=== PATIENT | male | born 1945 | race Caucasian/White ===

== ENCOUNTER → 2016-08-15 | Outpatient (CLI) | payer MEDICARE, OTHER ==
[~2016-08-15] MED LIST: COREG 25MG TAB25 MG PO; DIGOX250 MCG PO; METFORMIN HCL1000 M1 PO; NORVASC 5 MG TAB5 MG PO; SIMVASTATIN20 MG PO; SYNTHROID200 MCG PO; XARELTO20 MG PO; ZANTAC150 MG PO
== END ==
LOC: LAB 09:04 → US 09:04
DX: R94.5 Abnormal results of liver function studies (principal)
CPT/HCPCS: 36415; 82103; 83540; 83550; 86039; 86255

== ENCOUNTER → 2016-08-18 | Day surgery (SDC) | payer MEDICARE, OTHER | END | disposition home or self-care (01) | LOC: OR 06:33 | PROVIDERS: Internal Medicine Gastroenterology | PROC: 0DJD8ZZ Inspection of Lower Intestinal Tract, Via Natural or Artificial Opening Endoscopic (ICD-10-PCS; 2016-08-18) | PROC: 0DB48ZX Excision of Esophagogastric Junction, Via Natural or Artificial Opening Endoscopic, Diagnostic (ICD-10-PCS; principal; 2016-08-18 10:30) | PROC: 0DB68ZX Excision of Stomach, Via Natural or Artificial Opening Endoscopic, Diagnostic (ICD-10-PCS; 2016-08-18 10:30) | DX: K29.30 Chronic superficial gastritis without bleeding (principal); K21.0 Gastro-esophageal reflux disease with esophagitis; K64.0 First degree hemorrhoids; I11.0 Hypertensive heart disease with heart failure; I50.9 Heart failure, unspecified; K21.9 Gastro-esophageal reflux disease without esophagitis; M19.90 Unspecified osteoarthritis, unspecified site; Z82.49 Family history of ischemic heart disease and other diseases of the circulatory system; Z83.3 Family history of diabetes mellitus; Z79.899 Other long term (current) drug therapy; Z95.810 Presence of automatic (implantable) cardiac defibrillator; Z98.49 Cataract extraction status, unspecified eye | CPT/HCPCS: 82962; J7030 ==

== ENCOUNTER → 2016-08-22 | Outpatient (CLI) | payer MEDICARE, OTHER | LOC: US 09:19 | DX: R94.5 Abnormal results of liver function studies (principal); K80.20 Calculus of gallbladder without cholecystitis without obstruction; N28.1 Cyst of kidney, acquired | CPT/HCPCS: 76705 ==

== ENCOUNTER → 2020-07-15 | Outpatient (CLI) | payer MEDICARE, OTHER ==
[~2020-07-15] MED LIST changes: +DIGOXIN125 MCG PO; +ENTRESTO 24 MG1 EACH PO; +FAMOTIDINE20 MG PO; +FINASTERIDE5 MG PO; +HYDRALAZINE HC100 MG PO; +IRON325 M1 PO; +LANTUS100 UNIT/1 SC; +LEVAQUIN500 MG PO; +LEVOTHYROXINE125 MCG PO; +NOVOLOG100 UNIT/1 SC; +TAMSULOSIN HCL0.4 MG PO; +TYLENOL WITH C1 EACH PO
== END ==
LOC: US 10:12
DX: N28.1 Cyst of kidney, acquired (principal)

== ENCOUNTER 2020-11-12 07:41 | Emergency (ER) | payer MEDICARE, OTHER | END 2020-11-12 08:33 | disposition home or self-care (01) | LOC: ER1 07:41 | DX: S70.262A Insect bite (nonvenomous), left hip, initial encounter (principal); E11.9 Type 2 diabetes mellitus without complications; I10 Essential (primary) hypertension; W22.8XXA Striking against or struck by other objects, initial encounter | CPT/HCPCS: 99281 ==

== ENCOUNTER 2021-02-25 14:44 | Emergency (ER) | payer MEDICARE, OTHER ==
[2021-02-25 16:36] LABS: HEMOGLOBIN 10.4 gm/dl (14.0-17.5); RED BLOOD COUNT 3.45 M/UL (4.20-5.50); WHITE BLOOD COUNT 7.4 K/UL (4.5-11.0)
[2021-02-25] MEDS ORDERED: LASIX20 MG PO (18:14)
== END 2021-02-25 19:08 | disposition home or self-care (01) ==
LOC: ER1 14:44
PROVIDERS: Preventive Medicine Occupational Medicine
DX: I11.0 Hypertensive heart disease with heart failure (principal); I50.9 Heart failure, unspecified; E11.9 Type 2 diabetes mellitus without complications
CPT/HCPCS: 71045; 80053; 81001; 82550; 82553; 83690; 83874; 83880; 84484; 85025; 85652; 86140; 87086; 93970; 96374; 99284

== ENCOUNTER → 2021-03-12 | Outpatient (CLI) | payer MEDICARE, OTHER ==
[~2021-03-12] MED LIST changes: +LASIX20 MG PO
== END ==
LOC: US 10:08
DX: R74.8 Abnormal levels of other serum enzymes (principal); N28.1 Cyst of kidney, acquired
CPT/HCPCS: 76700

== ENCOUNTER → 2021-03-29 | Outpatient (CLI) | payer MEDICARE, OTHER | LOC: HEART 5 09:27 | DX: I50.22 Chronic systolic (congestive) heart failure (principal) | CPT/HCPCS: 93306 ==

== ENCOUNTER → 2021-04-15 | Day surgery (SDC) | payer MEDICARE, OTHER ==
[~2021-04-15] MED LIST changes: +CEPHALEXIN500 M1 PO; +HUMALOG100 UNIT/1 SQ; +LANTUS SOL100 UNIT/1 SQ; +NORVASC5 MG PO; +VITAMIN D350 MCG PO
== END | disposition home or self-care (01) ==
LOC: OR 06:26
DX: K31.9 Disease of stomach and duodenum, unspecified (principal); K29.50 Unspecified chronic gastritis without bleeding; D12.2 Benign neoplasm of ascending colon; D12.0 Benign neoplasm of cecum; D12.3 Benign neoplasm of transverse colon; D50.0 Iron deficiency anemia secondary to blood loss (chronic); K64.1 Second degree hemorrhoids; R79.89 Other specified abnormal findings of blood chemistry; E66.3 Overweight; I10 Essential (primary) hypertension; E11.9 Type 2 diabetes mellitus without complications; E07.9 Disorder of thyroid, unspecified; Z68.26 Body mass index [BMI] 26.0-26.9, adult; Z87.891 Personal history of nicotine dependence; Z79.899 Other long term (current) drug therapy; Z20.822 Contact with and (suspected) exposure to COVID-19; Z95.0 Presence of cardiac pacemaker
CPT/HCPCS: 82962; J2001; J2704; J7040

== ENCOUNTER → 2021-09-10 | Outpatient (CLI) | payer MEDICARE, OTHER | LOC: WCC 07:33 | DX: S81.801A Unspecified open wound, right lower leg, initial encounter (principal); S81.802A Unspecified open wound, left lower leg, initial encounter; I11.0 Hypertensive heart disease with heart failure; I50.9 Heart failure, unspecified; R60.0 Localized edema; Z87.891 Personal history of nicotine dependence | CPT/HCPCS: 97597 ==

== ENCOUNTER → 2021-09-17 | Outpatient (CLI) | payer MEDICARE, OTHER | LOC: WCC 07:01 | DX: I87.2 Venous insufficiency (chronic) (peripheral) (principal); L97.229 Non-pressure chronic ulcer of left calf with unspecified severity; I11.0 Hypertensive heart disease with heart failure; I50.9 Heart failure, unspecified; E11.9 Type 2 diabetes mellitus without complications; S81.801A Unspecified open wound, right lower leg, initial encounter; S81.802A Unspecified open wound, left lower leg, initial encounter; Z79.4 Long term (current) use of insulin; Z79.899 Other long term (current) drug therapy; X58.XXXA Exposure to other specified factors, initial encounter | CPT/HCPCS: G0463 ==

== ENCOUNTER → 2021-09-17 | Outpatient (CLI) | payer MEDICARE, OTHER | LOC: US 11:55 | DX: R60.0 Localized edema (principal); S81.801A Unspecified open wound, right lower leg, initial encounter; S81.802A Unspecified open wound, left lower leg, initial encounter; I11.0 Hypertensive heart disease with heart failure; I50.9 Heart failure, unspecified | CPT/HCPCS: 93922; 93925 ==

== ENCOUNTER 2021-09-27 11:04 | Emergency (ER) | payer MEDICARE, OTHER ==
[2021-09-27 11:55] LABS: HEMOGLOBIN 11.6 gm/dl (14.0-17.5); RED BLOOD COUNT 3.75 M/UL (4.20-5.50); WHITE BLOOD COUNT 7.7 K/UL (4.5-11.0)
== END 2021-09-27 13:25 | disposition home or self-care (01) ==
LOC: ER1 11:04
PROVIDERS: Nurse Practitioner
DX: S01.01XA Laceration without foreign body of scalp, initial encounter (principal); N18.9 Chronic kidney disease, unspecified; I10 Essential (primary) hypertension; Z95.0 Presence of cardiac pacemaker; E11.9 Type 2 diabetes mellitus without complications; W19.XXXA Unspecified fall, initial encounter
CPT/HCPCS: 12002; 70450; 71045; 72125; 80053; 81001; 82550; 82553; 83735; 84100; 84439; 84443; 84484; 85025; 93005; 99284

== ENCOUNTER → 2021-09-28 | Outpatient (CLI) | payer MEDICARE, OTHER | END | disposition home or self-care (01) | LOC: WCC 07:22 | DX: I87.2 Venous insufficiency (chronic) (peripheral) (principal); L97.812 Non-pressure chronic ulcer of other part of right lower leg with fat layer exposed; I13.0 Hypertensive heart and chronic kidney disease with heart failure and stage 1 through stage 4 chronic kidney disease, or unspecified chronic kidney disease; E11.22 Type 2 diabetes mellitus with diabetic chronic kidney disease; N18.9 Chronic kidney disease, unspecified; I50.9 Heart failure, unspecified; R60.0 Localized edema; R26.2 Difficulty in walking, not elsewhere classified; M19.90 Unspecified osteoarthritis, unspecified site; I49.9 Cardiac arrhythmia, unspecified; Z79.01 Long term (current) use of anticoagulants; Z79.4 Long term (current) use of insulin; Z79.899 Other long term (current) drug therapy ==

== ENCOUNTER → 2021-10-05 | Outpatient (CLI) | payer MEDICARE, OTHER | LOC: HEART 5 09-20 13:30 → EXRD 09-27 08:00 → HEART 5 09-27 11:00 → EXRD 09-28 10:45 → HEART 5 09-28 13:30 | DX: I11.0 Hypertensive heart disease with heart failure (principal); I50.9 Heart failure, unspecified; S81.801A Unspecified open wound, right lower leg, initial encounter; S81.802A Unspecified open wound, left lower leg, initial encounter; R60.0 Localized edema | CPT/HCPCS: 93970 ==

== ENCOUNTER → 2021-11-10 | Outpatient (CLI) | payer MEDICARE, OTHER | LOC: US 07:08 → WCC 07:08 | DX: N28.1 Cyst of kidney, acquired (principal) | CPT/HCPCS: G0463 ==

== ENCOUNTER → 2022-02-23 | Outpatient (CLI) | payer MEDICARE, OTHER | LOC: KOH-I 11:45 | DX: E87.1 Hypo-osmolality and hyponatremia (principal) | CPT/HCPCS: 71046 ==